=== PATIENT | male | born 1935 | race Asian ===

== ENCOUNTER 2024-01-30 21:30 | Emergency (ER) | payer MEDICARE, OTHER ==
[~2024-01-30] VITALS: Ht 157.5 cm; Wt 86.0 kg
[~2024-01-30 21:30] MED LIST: FINA-27 PO; MONT-35 PO; OLME40TA70 PO; ROSU10TA72 PO; SENN-277 PO; TAMS0.4C94 PO
[2024-01-30 21:50] VITALS: TEMP 97.6
[2024-01-30] MEDS ORDERED: RIVA20TA PO (21:53)
[2024-01-31 00:35] LABS: APPEARANCE,URINE CLEAR (CLEAR); BILIRUBIN,URINE NEGATIVE (NEGATIVE); COLOR,URINE COLORLESS (YELLOW); GLUCOSE, URINE (UA) NEGATIVE (NEGATIVE); KETONES,URINE NEGATIVE (NEGATIVE); LEUKOCYTE ESTERASE ,URINE SMALL (NEGATIVE); NITRATE,URINE NEGATIVE (NEGATIVE); OCCULT BLOOD,URINE LARGE (NEGATIVE); PH,URINE 5.5 (5.0-8.0); PROTEIN,URINE NEGATIVE (NEGATIVE); SPECIFIC GRAVITIY, URINE 1.003 (1.003-1.030); UROBILINOGEN,URINE <=1.0 mg/dL (<=1.0)
[2024-01-31 00:44] LABS: BACTERIA,URINE None Seen /HPF (None Seen); SQUAMOUS EPITHELIAL CELL,UR None Seen /LPF (None Seen)
[2024-01-31] MEDS ORDERED: CEPH-556 PO (00:57)
[2024-01-31 01:00] VITALS: BP 147/72; PULSE 54; RESP 18
== END 2024-01-31 01:12 | disposition home or self-care (01) ==
LOC: EMS 21:30
DX: N39.0 Urinary tract infection, site not specified (principal); R30.9 Painful micturition, unspecified; I10 Essential (primary) hypertension
CPT/HCPCS: 81001; 99283